=== PATIENT | female | born 1935 | race Caucasian/White ===

== ENCOUNTER 2019-08-14 13:01 | Inpatient (IN) ==
[2019-08-14] MEDS ORDERED: *HR* LORazepam 0.5 MG TABLET PO PRN (13:37)
[2019-08-14] MEDS: (Preservision Areds) PO SCH (19:51)
[2019-08-14] MEDS: Amoxicillin 500 MG CAPSULE PO SCH (19:57)
[2019-08-14] MEDS: Niacin (24 HR) 500 MG TAB.ER.24H PO SCH (19:57)
[2019-08-15] MEDS: hydroCHLOROthiazide 25 MG TABLET PO SCH (09:21)
[2019-08-15] MEDS: Amoxicillin 500 MG CAPSULE PO SCH ×2 (09:21→20:07)
[2019-08-15] MEDS: Cholecalciferol (D-3) 1,000 UNIT (25MCG) TABLET PO SCH (09:21)
[2019-08-15] MEDS: ZINC ACETATE 50 MG PO SCH (09:22)
[2019-08-15] MEDS: amLODIPine 5 MG TABLET PO SCH (09:22)
[2019-08-15] MEDS: Metoprolol XL (24 HR) Succ 25 MG TAB.ER.24H PO SCH (09:22)
[2019-08-15] MEDS: (Preservision Areds) PO SCH ×2 (09:22→21:48)
[2019-08-15] MEDS: Magnesium Oxide 400 MG TABLET PO SCH (09:22)
[2019-08-15] MEDS ORDERED: Bisacodyl 10 MG RECTAL SUPPOSITORY RC PRN (12:56)
[2019-08-15] MEDS: Lactobacillus 1 EACH CAP.SPRINK PO SCH (20:07)
[2019-08-15] MEDS: Niacin (24 HR) 500 MG TAB.ER.24H PO SCH (20:10)
[2019-08-16] MEDS: traMADol 50 MG TABLET PO PRN ×2 (01:41→20:50)
[2019-08-16] MEDS: *HR* Enoxaparin 40 MG/0.4 ML SYRINGE SQ SCH (06:08)
[2019-08-16] MEDS: Cholecalciferol (D-3) 1,000 UNIT (25MCG) TABLET PO SCH (08:07)
[2019-08-16] MEDS: amLODIPine 5 MG TABLET PO SCH (08:07)
[2019-08-16] MEDS: Cyanocobalamin (B-12) 1,000 MCG TABLET PO SCH (08:07)
[2019-08-16] MEDS: hydroCHLOROthiazide 25 MG TABLET PO SCH (08:08)
[2019-08-16] MEDS: Amoxicillin 500 MG CAPSULE PO SCH ×2 (08:08→20:51)
[2019-08-16] MEDS: Magnesium Oxide 400 MG TABLET PO SCH (08:08)
[2019-08-16] MEDS: ZINC ACETATE 50 MG PO SCH (08:08)
[2019-08-16] MEDS: Metoprolol XL (24 HR) Succ 25 MG TAB.ER.24H PO SCH (08:08)
[2019-08-16] MEDS: (Preservision Areds) PO SCH ×2 (08:08→20:51)
[2019-08-16] MEDS: Lactobacillus 1 EACH CAP.SPRINK PO SCH ×2 (08:08→20:50)
[2019-08-16] MEDS: Niacin (24 HR) 500 MG TAB.ER.24H PO SCH (20:51)
[2019-08-17] MEDS: *HR* Enoxaparin 40 MG/0.4 ML SYRINGE SQ SCH (05:50)
[2019-08-17] MEDS: amLODIPine 5 MG TABLET PO SCH (09:08)
[2019-08-17] MEDS: Amoxicillin 500 MG CAPSULE PO SCH ×2 (09:08→20:52)
[2019-08-17] MEDS: Magnesium Oxide 400 MG TABLET PO SCH (09:09)
[2019-08-17] MEDS: Lactobacillus 1 EACH CAP.SPRINK PO SCH ×2 (09:09→20:52)
[2019-08-17] MEDS: Cholecalciferol (D-3) 1,000 UNIT (25MCG) TABLET PO SCH (09:09)
[2019-08-17] MEDS: Metoprolol XL (24 HR) Succ 25 MG TAB.ER.24H PO SCH (09:09)
[2019-08-17] MEDS: hydroCHLOROthiazide 25 MG TABLET PO SCH (09:09)
[2019-08-17] MEDS: Cyanocobalamin (B-12) 1,000 MCG TABLET PO SCH (09:09)
[2019-08-17] MEDS: ZINC ACETATE 50 MG PO SCH (09:10)
[2019-08-17] MEDS: (Preservision Areds) PO SCH ×2 (09:10→20:52)
[2019-08-17] MEDS: Niacin (24 HR) 500 MG TAB.ER.24H PO SCH (20:52)
[2019-08-18] MEDS: *HR* Enoxaparin 40 MG/0.4 ML SYRINGE SQ SCH (09:37)
[2019-08-18] MEDS: Metoprolol XL (24 HR) Succ 25 MG TAB.ER.24H PO SCH (09:39)
[2019-08-18] MEDS: hydroCHLOROthiazide 25 MG TABLET PO SCH (09:39)
[2019-08-18] MEDS: Amoxicillin 500 MG CAPSULE PO SCH (09:39)
[2019-08-18] MEDS: Lactobacillus 1 EACH CAP.SPRINK PO SCH (09:40)
[2019-08-18] MEDS: Cholecalciferol (D-3) 1,000 UNIT (25MCG) TABLET PO SCH (09:40)
[2019-08-18] MEDS: Cyanocobalamin (B-12) 1,000 MCG TABLET PO SCH (09:40)
[2019-08-18] MEDS: Magnesium Oxide 400 MG TABLET PO SCH (09:40)
[2019-08-18] MEDS: amLODIPine 5 MG TABLET PO SCH (09:40)
[2019-08-18] MEDS: (Preservision Areds) PO SCH ×2 (09:41→21:00)
[2019-08-18] MEDS: ZINC ACETATE 50 MG PO SCH (09:41)
[2019-08-18] MEDS ORDERED: Preparation H Ointment 30 GM TUBE RC PRN (14:13)
[2019-08-18] MEDS: traMADol 50 MG TABLET PO PRN (20:58)
[2019-08-18] MEDS: Niacin (24 HR) 500 MG TAB.ER.24H PO SCH (21:00)
[2019-08-18] MEDS: traZODone 50 MG TABLET PO SCH (23:27)
[2019-08-19] MEDS: *HR* Enoxaparin 40 MG/0.4 ML SYRINGE SQ SCH (06:22)
[2019-08-19] MEDS: Magnesium Oxide 400 MG TABLET PO SCH (08:26)
[2019-08-19] MEDS: Cyanocobalamin (B-12) 1,000 MCG TABLET PO SCH (08:26)
[2019-08-19] MEDS: Metoprolol XL (24 HR) Succ 25 MG TAB.ER.24H PO SCH (08:26)
[2019-08-19] MEDS: Cholecalciferol (D-3) 1,000 UNIT (25MCG) TABLET PO SCH (08:26)
[2019-08-19] MEDS: amLODIPine 5 MG TABLET PO SCH (08:26)
[2019-08-19] MEDS: hydroCHLOROthiazide 25 MG TABLET PO SCH (08:26)
[2019-08-19] MEDS: ZINC ACETATE 50 MG PO SCH (08:28)
[2019-08-19] MEDS: (Preservision Areds) PO SCH ×2 (08:28→21:22)
[2019-08-19] MEDS: Niacin (24 HR) 500 MG TAB.ER.24H PO SCH (21:20)
[2019-08-19] MEDS: traZODone 50 MG TABLET PO SCH (21:21)
[2019-08-20] MEDS: *HR* Enoxaparin 40 MG/0.4 ML SYRINGE SQ SCH (06:15)
[2019-08-20 06:35] LABS: Basophils % 0.4 %; Eosinophils # 0.1 K/mcL (0.0-0.6); Eosinophils % 1.5 %; Hematocrit 33.7 % (35.3-44.9); Hemoglobin 11.2 g/dL (11.5-15.4); Immature Granulocytes % 0.4 % (0-4); Lymphocytes # 2.9 K/mcL (0.6-4.6); Mean Corpuscular HGB Conc 33.2 g/dL (31.6-35.5); Mean Corpuscular Hemoglobin 32.2 pg (28.0-33.3); Mean Corpuscular Volume 96.8 fL (83.0-100.0); Mean Platelet Volume 9.2 fL (9.4-12.4); Monocytes # 0.8 K/mcL (0.0-1.3); Neutrophils # 3.6 K/mcL (1.6-8.9); Platelet Count 326 K/mcL (140-400); Red Blood Count 3.48 M/mcL (3.82-4.97); Red Cell Distribution Width 14.3 % (11.5-14.5); Segmented Neutrophils % 47.7 %; White Blood Count 7.5 K/mcL (4.3-11.1)
[2019-08-20 07:06] LABS: Albumin 3.5 g/dL (3.5-5.7); Albumin/Globulin Ratio 1.4 (1.1-2.2); Bilirubin,Total 0.4 mg/dL (0.3-1.0); Calcium 9.6 mg/dL (8.6-10.3); Globulin 2.5 g/dL (2.4-3.5); Magnesium 1.6 mg/dL (1.6-2.6); Potassium 4.3 mEq/L (3.5-5.1)
[2019-08-20] MEDS: Cyanocobalamin (B-12) 1,000 MCG TABLET PO SCH (08:54)
[2019-08-20] MEDS: Magnesium Oxide 400 MG TABLET PO SCH (08:54)
[2019-08-20] MEDS: hydroCHLOROthiazide 25 MG TABLET PO SCH (08:54)
[2019-08-20] MEDS: Cholecalciferol (D-3) 1,000 UNIT (25MCG) TABLET PO SCH (08:54)
[2019-08-20] MEDS: Metoprolol XL (24 HR) Succ 25 MG TAB.ER.24H PO SCH (08:54)
[2019-08-20] MEDS: ZINC ACETATE 50 MG PO SCH (08:56)
[2019-08-20] MEDS: (Preservision Areds) PO SCH ×2 (08:56→19:43)
[2019-08-20] MEDS: traZODone 50 MG TABLET PO SCH (19:43)
[2019-08-20] MEDS: Niacin (24 HR) 500 MG TAB.ER.24H PO SCH (19:43)
[2019-08-21] MEDS: *HR* Enoxaparin 30 MG/0.3 ML SYRINGE SQ SCH (06:44)
[2019-08-21] MEDS: (Preservision Areds) PO SCH ×2 (09:29→21:33)
[2019-08-21] MEDS: ZINC ACETATE 50 MG PO SCH (09:29)
[2019-08-21] MEDS: Metoprolol XL (24 HR) Succ 25 MG TAB.ER.24H PO SCH (10:13)
[2019-08-21] MEDS: Magnesium Oxide 400 MG TABLET PO SCH (10:14)
[2019-08-21] MEDS: Cholecalciferol (D-3) 1,000 UNIT (25MCG) TABLET PO SCH (10:14)
[2019-08-21] MEDS: hydroCHLOROthiazide 25 MG TABLET PO SCH (10:14)
[2019-08-21] MEDS: Cyanocobalamin (B-12) 1,000 MCG TABLET PO SCH (10:14)
[2019-08-21] MEDS: Niacin (24 HR) 500 MG TAB.ER.24H PO SCH (21:32)
[2019-08-21] MEDS: traZODone 50 MG TABLET PO SCH (21:32)
[2019-08-22] MEDS: *HR* Enoxaparin 30 MG/0.3 ML SYRINGE SQ SCH (06:40)
[2019-08-22] MEDS: ZINC ACETATE 50 MG PO SCH (08:10)
[2019-08-22] MEDS: (Preservision Areds) PO SCH ×2 (08:10→20:03)
[2019-08-22] MEDS: Cyanocobalamin (B-12) 1,000 MCG TABLET PO SCH (08:19)
[2019-08-22] MEDS: hydroCHLOROthiazide 25 MG TABLET PO SCH (08:19)
[2019-08-22] MEDS: Cholecalciferol (D-3) 1,000 UNIT (25MCG) TABLET PO SCH (08:19)
[2019-08-22] MEDS: Magnesium Oxide 400 MG TABLET PO SCH (08:19)
[2019-08-22] MEDS: Metoprolol XL (24 HR) Succ 25 MG TAB.ER.24H PO SCH (08:19)
[2019-08-22] MEDS: traZODone 50 MG TABLET PO SCH (20:02)
[2019-08-22] MEDS: Niacin (24 HR) 500 MG TAB.ER.24H PO SCH (20:03)
[2019-08-23] MEDS: *HR* Enoxaparin 30 MG/0.3 ML SYRINGE SQ SCH (06:27)
[2019-08-23 08:06] VITALS: BP 122/70
[2019-08-23] MEDS: Cyanocobalamin (B-12) 1,000 MCG TABLET PO SCH (08:16)
[2019-08-23] MEDS: Magnesium Oxide 400 MG TABLET PO SCH (08:16)
[2019-08-23] MEDS: (Preservision Areds) PO SCH (08:17)
[2019-08-23] MEDS: Metoprolol XL (24 HR) Succ 25 MG TAB.ER.24H PO SCH (08:17)
[2019-08-23] MEDS: Cholecalciferol (D-3) 1,000 UNIT (25MCG) TABLET PO SCH (08:17)
[2019-08-23] MEDS: hydroCHLOROthiazide 25 MG TABLET PO SCH (08:17)
[2019-08-23] MEDS: ZINC ACETATE 50 MG PO SCH (08:17)
== END 2019-08-23 11:08 | disposition home health service (06) | DRG 690 ==
LOC: INPPIK 13:05
PROVIDERS: ADMIT Internal Medicine; ATTEND Internal Medicine